=== PATIENT | male | born 1935 | race African-American/Black ===

== ENCOUNTER → 2018-09-17 | Outpatient (CLI) | payer OTHER ==
[~2018-09-17] VITALS: Ht 165.1 cm; Wt 63.0 kg
[~2018-09-17] MED LIST: ARICEPT 5 MG TAB5 MG PO; ASPIR 8181 MG PO; CENTRUM SILVER1 EAC2 PO; CRESTOR10 MG PO; FISH OIL 1,001000 M2 PO; LOSARTAN POTAS100 MG PO; NORVASC5 MG PO; PREVALITE PACKET4 GM PO; ZYRTEC10 M5 PO
--- NOTE | 2018-09-18 16:06 | PATH ---
[facility] [place] [address] PATHOLOGY RPT PROCEDURE Name: DOLLYMEERA Shelby Room #: REG JOSE Zen.#: [id number] ������������������ Admission: 09/17/18 ������������������ Date of : 33 Discharge: Report #: [id number] Path Case #: [id number] [facility] Accession Number: [id number] . 01 Material submitted: . PART A: duodenum - DUODENAL BX PART B: stomach - BX GASTRITIS PART C: esophagus - BX DISTAL ESOPHAGUS. Modifiers: distal PART D: rectum - BX POLYP AT RECTUM . 01 Clinical history: . Preop DX: Weight loss Postop DX: Gastritis, rectal polyp, weight loss A. R/O celiac sprue B. R/O H pylori C. R/O Tarango's . 02 Diagnosis: A. Small bowel mucosa, duodenum, endoscopic biopsy: - No diagnostic abnormalities. - Negative for villous blunting or increase in intraepithelial lymphocytes. . B. Gastric mucosa, gastritis, endoscopic biopsy: - Helicobacter pylori induced moderate active gastritis. - Negative for intestinal metaplasia or atrophy. - Properly controlled immunohistochemical stain showing moderate Helicobacter pylori organisms. . C. Gastroesophageal mucosa, distal esophagus, endoscopic biopsy: - Columnar gastric cardia-type mucosa with mild chronic inflammation. - Negative for intestinal metaplasia or dysplasia. - Squamous mucosa with mild chronic inflammation. . D. Polyp, at rectum, endoscopic biopsy: - Hyperplastic polyp. - Negative for dysplasia. (IUV; 09/18/2018) LBQ/09/18/2018 . 02 Electronically signed: . Katiana Kern MD, Pathologist NPI- [id number] . 01 Gross description: . A. Received in formalin labeled "Meera Hidalgo duodenal Bx R/O celiac sprue Hx weight loss," are four segments of reese-brown soft tissue measuring 0.[address] [address] PATHOLOGY RPT PROCEDURE Name: MEERA HIDALGO Room #: REG CLI [facility].#: [id number] ������������������ Admission: 09/17/18 ������������������ Date of : 34 Discharge: Report #: [id number] Path Case #: [id number] x 0.5 x 0.3 cm in aggregate dimensions and ranging from 0.2 to 0.4 cm in maximum dimension. The specimen is submitted entirely in cassette A1. . B. Received in formalin labeled "Meera Hidalgo Bx gastritis R/O Hpylori," are four segments of pink-reese soft tissue measuring 0.7 x 0.5 x 0.3 cm in aggregate dimensions and ranging from 0.3 to 0.5 cm in maximum dimension. The specimen is submitted entirely in cassette B1. . C. Received in formalin labeled "Meera Hidalgo, Adrianna distal esophagus R/O Barrets," is a segment of pink-reese soft tissue measuring 0.3 x 0.2 x 0.2 cm in greatest dimensions. The specimen is submitted entirely in cassette C1. . D. Received in formalin labeled "Meera Hidalgo Bx polyp at rectum," is a segment of pink-reese soft tissue measuring 0.4 x 0.3 x 0.3 cm in greatest dimensions. The specimen is submitted entirely in cassette D1. (DAC; 09/17/2018) XDC/XDC . 02 Pathologist provided ICD-10: K29.00, B96.81, K29.50, K62.1 . 02 CPT . 317786, 691291, 303896, 531671, Y76563 Specimen Comment: A courtesy copy of this report has been sent to Specimen Comment: [phone], . Specimen Comment: Report sent to / DR TORRES Performed at: [address], [place], [place] [id number] MD Kedar Galindo MD Phone: [phone] Performed at: [address] [id number] MD Katiana Kern MD Phone: [phone]
--- NOTE | 2018-09-19 08:18 | P ---
[facility] [place] [address] [place] [address] PROCEDURE REPORT Name: GWENMEERA Renzo Room #: REG [facility]#: [id number] Admission: 09/17/18 ������������������ Attend Phys: Cm Chand Discharge: ������������������ Date of : 34 Report #: [id number] THIS REPORT FOR: //name// CC: FAVIAN Wyatt DATE OF SERVICE: 09/17/2018 PROCEDURE PERFORMED: Upper endoscopy with biopsies. HISTORY OF PRESENT ILLNESS: The patient is an 83-year-old male with recent weight loss of approximately 20 pounds in the last 4 months. He does report some mild nausea at times. Denies any heartburn or dysphagia. His bowel movements have been fairly normal. He apparently has had an ultrasound of the abdomen; however, the results are pending at this time. Plan is for EGD and colonoscopy today. DESCRIPTION OF PROCEDURE: The risks and benefits of the procedure were explained to the patient, those risks including but not limited to bleeding, perforation and the risk of sedation. He understood these risks and gave informed consent. Sedation was given using propofol per Anesthesia. Next, using a standard Olympus upper endoscope, the scope was placed in the patient's mouth and advanced under direct vision through the esophagus, stomach and into the second portion of the duodenum. The upper and mid esophagus were normal in appearance. In the distal esophagus, a single pink mucosal tongue was noted. Biopsies were obtained to rule out Tarango's esophagus. No evidence of erosive esophagitis. Overall, there was a mild atrophic appearing gastritis, otherwise normal. No ulcerations or erosions. Biopsies were obtained to rule out H. pylori. The pylorus was normal and patent. The duodenal bulb, first and second portion were normal. Biopsies were also obtained to rule out celiac sprue. The scope was then withdrawn and the procedure terminated. The patient tolerated the procedure well. IMPRESSION: 1. 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 2. Mild gastritis. 3. Otherwise, normal upper endoscopy. RECOMMENDATIONS: 1. Await biopsy results. 2. We will proceed with colonoscopy next today. [facility] [address] [place] [address] PROCEDURE REPORT Name: MEERA HIDALGO Room #: REG JOSE Sen#: [id number] Admission: 09/17/18 ������������������ Attend Phys: Cm Chand Discharge: ������������������ Date of : 34 Report #: [id number] Thank you for allowing me to participate in his care. ��������������������������������������������� <ELECTRONICALLY SIGNED> ���������������������������������������� By: Cm Diaz MD ��������������������������������������������� 09/19/18 0818 1116 2129 Cm Diaz MD /nt
--- NOTE | 2018-09-19 08:18 | P ---
[facility] [place] [address] [place] [address] PROCEDURE REPORT Name: GWENMEERA Renzo Room #: REG [facility]#: [id number] Admission: 09/17/18 ������������������ Attend Phys: Cm Chand Discharge: ������������������ Date of : 34 Report #: [id number] THIS REPORT FOR: //name// CC: Juan Carlos Wyatt DATE OF SERVICE: 09/17/2018 PROCEDURE PERFORMED: Colonoscopy with biopsies. HISTORY OF PRESENT ILLNESS: The patient is an 83-year-old male with a history of weight loss of approximately 20 pounds in the last 4 months. Ultrasound of the abdomen was reportedly done recently. I do not have a copy of these results. Family has not heard of results as well. He does report some mild nausea and upper endoscopy was just performed by myself, which showed a mild gastritis, possible short segment of Tarango's, but otherwise negative. His last colonoscopy reportedly was 10 years ago. He denies any constipation or diarrhea in general. He denies any blood in his stools. No family history of colon cancer. DESCRIPTION OF PROCEDURE: The risks and benefits of the procedure were explained to the patient, those risks including but not limited to bleeding, perforation, and the risk of sedation. He understood these risks and gave informed consent. Sedation was given using propofol per Anesthesia. Next, a digital rectal exam was initially performed, which was normal. Next, using a standard Olympus colonoscope, the scope was placed in the patient's anus and advanced under direct vision to the cecum. The overall prep was excellent. The cecum and ileocecal valve were normal in appearance. The ascending, transverse, descending and sigmoid colon were normal. In the rectum, a 3 mm sessile polyp was noted. This was removed with cold forceps. On retroflexion, small to medium size internal hemorrhoids, nonbleeding were noted. Scope was then withdrawn and the procedure terminated. The patient tolerated the procedure well. IMPRESSION: 1. Small rectal polyp. 2. Small internal hemorrhoids. 3. Otherwise, normal colonoscopy. RECOMMENDATIONS: Await biopsies from EGD and colonoscopy today. Etiology of weight loss is unclear at this time. If biopsies are all negative, consider a CT scan of the abdomen and pelvis depending on a recent ultrasound findings as well. [address] [address] PROCEDURE REPORT Name: MEERA HIDALGO Room #: REG [facility] Francy#: [id number] Admission: 09/17/18 ������������������ Attend Phys: Cm Chand Discharge: ������������������ Date of : 34 Report #: [id number] Thank you for allowing me to participate in his care. ��������������������������������������������� <ELECTRONICALLY SIGNED> ���������������������������������������� By: Cm Diaz MD ��������������������������������������������� 09/19/18 0818 1137 2209 Cm Diaz MD /nt
== END | disposition home or self-care (01) ==
LOC: GI 09:44
DX: K62.1 Rectal polyp (principal); K29.00 Acute gastritis without bleeding; K29.50 Unspecified chronic gastritis without bleeding; B96.81 Helicobacter pylori [H. pylori] as the cause of diseases classified elsewhere; K64.8 Other hemorrhoids; I10 Essential (primary) hypertension; E78.5 Hyperlipidemia, unspecified; F03.90 Unspecified dementia, unspecified severity, without behavioral disturbance, psychotic disturbance, mood disturbance, and anxiety; E11.9 Type 2 diabetes mellitus without complications; Z95.1 Presence of aortocoronary bypass graft; Z98.41 Cataract extraction status, right eye; Z98.42 Cataract extraction status, left eye; Z90.49 Acquired absence of other specified parts of digestive tract; Z98.890 Other specified postprocedural states; Z79.899 Other long term (current) drug therapy; Z79.82 Long term (current) use of aspirin
CPT/HCPCS: 62110; 62900

== ENCOUNTER 2019-09-03 19:05 | Emergency (ER) | payer OTHER ==
[~2019-09-03] VITALS: Ht 165.1 cm; Wt 67.1 kg
[2019-09-03] MEDS ORDERED: METFORMIN HCL500 MG PO (19:27)
[2019-09-03 19:37] LABS: HEMATOCRIT 40.7 % (42.0-52.0); HEMOGLOBIN 13.6 gm/dL (14.0-18.0); MCH 29.7 pg (26.0-34.0); MCHC 33.3 g/dL (28.0-37.0); MCV 89.3 fL (80.0-100.0); PLATELET COUNT 168 thou/uL (150-400); RBC 4.56 mil/uL (4.50-6.00); WBC 6.1 thou/uL (4.0-11.0)
[2019-09-03 19:43] LABS: ANION GAP 11 mmol/L (7-16); BUN 26 mg/dL (7-18); CALCIUM 9.7 mg/dL (8.5-10.1); CHLORIDE 102 mmol/L (98-107); CO2 26 mmol/L (21-32); CREATININE 1.9 mg/dL (0.7-1.3); GLUCOSE 77 mg/dL (74-106); POTASSIUM 4.4 mmol/L (3.5-5.1); SODIUM 139 mmol/L (136-145)
[2019-09-03 19:53] LABS: ALBUMIN 4.1 g/dL (3.4-5.0); SGOT 24 U/L (15-37); SGPT 21 U/L (30-65); TOTAL BILIRUBIN 0.3 mg/dL (<0.1-1.0); TOTAL PROTEIN 7.9 g/dL (6.4-8.2); TROPONIN-I <0.06 ng/mL (<0.06)
[2019-09-03 20:09] LABS: ABSOLUTE NEUTROPHILS 2.4 thou/uL (1.4-8.2)
[2019-09-03 20:35] VITALS: BP 140/70
--- NOTE | 2019-09-04 07:48 | EKG ---
[facility] [place] [address] [place] [address] ELECTROCARDIOGRAM REPORT Name: MEERA HIDALGO Room #: DEP [facility]#: [id number] Admission: 09/03/19 Attend Phys: Discharge: 09/03/19 Date of : 34 Report #: [id number] THIS REPORT FOR: cc: Kole Wyatt MD, Joahn MD Lundgren,Ricardo Gauthier MD [facility] ~ THIS REPORT FOR: //name// [facility] ED Test Date: 2019-09-03 Test Time: 19:15:37 Pat Name: MEERA HIDALGO Department: Room: Gender: Environmental Director: : 1935 Requested By: Yahir Perez Order Number: [id number] MD: Ricardo Flores Measurements Intervals [place] Rate: 76 P: 23 VA: 161 QRS: -76 QRSD: 131 T: 55 QT: 395 QTc: 445 Interpretive Statements Sinus rhythm RBBB and LAFB No previous ECG available for comparison Electronically Signed On 09-04-2019 7:46:59 CDT by Ricardo Flores [email or web address] <ELECTRONICALLY SIGNED> By: Ricardo Flores MD, [facility] 09/04/19 0746 14 14 Ricardo Flores MD, FAC /EPI
== END 2019-09-03 20:42 | disposition home or self-care (01) ==
LOC: ER 19:05
PROVIDERS: Emergency Medicine
DX: I10 Essential (primary) hypertension (principal); F03.90 Unspecified dementia, unspecified severity, without behavioral disturbance, psychotic disturbance, mood disturbance, and anxiety; E78.5 Hyperlipidemia, unspecified; Z79.899 Other long term (current) drug therapy

== ENCOUNTER → 2020-10-05 | Outpatient (CLI) | payer OTHER ==
[~2020-10-05] MED LIST changes: +METFORMIN HCL500 MG PO
== END ==
LOC: MRI 10:08
PROVIDERS: ATTEND Psychiatry & Neurology Neuromuscular Medicine
DX: I67.82 Cerebral ischemia (principal); G31.9 Degenerative disease of nervous system, unspecified; R51.9 Headache, unspecified; R29.2 Abnormal reflex; R41.3 Other amnesia